=== PATIENT | male | born 1965 | race Asian ===

== ENCOUNTER 2022-03-07 05:07 | Inpatient (IN) | payer MEDICAID, OTHER ==
[~2022-03-07] VITALS: Ht 170.2 cm; Wt 75.0 kg
[~2022-03-07 05:07] MED LIST: IBUP-2070 PO
[2022-03-07] MEDS ORDERED: AMLO-257 PO (05:18)
[2022-03-07] MEDS ORDERED: DICY20TA95 PO (05:18)
[2022-03-07] MEDS ORDERED: LOSA-30 PO (05:18)
[2022-03-07] MEDS ORDERED: CIPR500T10 PO (05:18)
[2022-03-07] MEDS ORDERED: METR500 PO (05:18)
[2022-03-07 05:47] LABS: BASOPHILS % (AUTO) 0.2 % (0.0-2.0); EOSINOPHILS % (AUTO) 1.3 % (1.0-6.0); HEMATOCRIT 40.5 % (41-53); HEMOGLOBIN 13.8 g/dL (13.5-17.5); LYMPHOCYTES # (AUTO) 1.8 K/uL (1.0-4.8); MEAN CORPUSCULAR HGB CONC 34.1 G/dL (31.0-37.0); MEAN CORPUSCULAR VOLUME 85 fL (80-100); MONOCYTES # (AUTO) 0.9 K/uL (0.1-1.0); MONOCYTES % (AUTO) 6.6 % (2.0-9.0); NEUTROPHILS # (AUTO) 10.1 K/uL (1.8-7.7); NEUTROPHILS % (AUTO) 77.9 % (40.0-70.0); PLATELET COUNT (AUTO) 320 K/uL (150-450); RED BLOOD CELL COUNT(AUTO) 4.76 MIL/uL (4.50-5.90); RED CELL DISTRIBUTION WIDTH 12.3 % (11.5-14.5)
[2022-03-07 05:49] LABS: APPEARANCE,URINE CLEAR (CLEAR); BILIRUBIN,URINE NEGATIVE (NEGATIVE); GLUCOSE, URINE (UA) NEGATIVE (NEGATIVE); LEUKOCYTE ESTERASE ,URINE TRACE (NEGATIVE); NITRATE,URINE NEGATIVE (NEGATIVE); OCCULT BLOOD,URINE SMALL (NEGATIVE); PROTEIN,URINE 30-70 mg/dL (NEGATIVE); SPECIFIC GRAVITIY, URINE 1.022 (1.003-1.030); UROBILINOGEN,URINE <=1.0 mg/dL (<=1.0)
[2022-03-07 06:02] LABS: ANION GAP 6 mmol/L (8-16); CALCIUM, TOTAL 8.8 mg/dL (8.8-10.5); CARBON DIOXIDE 29 mmol/L (22-29); CHLORIDE 100 mmol/L (98-107); CREATININE 1.13 mg/dL (0.60-1.30); GLUCOSE,RANDOM 114 mg/dL (70-110); POTASSIUM 3.1 mmol/L (3.5-5.1); SODIUM SERUM 135 mmol/L (136-145); UREA NITROGEN, BLOOD 14 mg/dL (7-18)
[2022-03-07 06:15] LABS: ALANINE AMINOTRANSFERASE 43 U/L (12-78); ALBUMIN 3.8 g/dL (3.4-5.0); ALKALINE PHOSPHATASE 77 U/L (46-116); BILIRUBIN,TOTAL 0.5 mg/dL (0.1-1.0); LIPASE 129 U/L (73-393); TOTAL PROTEIN, SERUM 7.5 g/dL (6.4-8.2)
[2022-03-07 06:17] LABS: GLOMERULAR FILTR. RATE CALC > 60 mL/min (>60)
[2022-03-07 06:24] LABS: BACTERIA,URINE None Seen /HPF (None Seen); WBC,URINE 0-2 /HPF (0-5)
[2022-03-07 06:26] LABS: ASPARTATE AMINOTRANSFERASE 33 U/L (15-37)
[2022-03-07] MEDS ORDERED: POTASSIUM CHLORIDE 20 MEQ ER TABLET PO ONE (07:30)
[2022-03-07] MEDS ORDERED: KETOROLAC TROMETHAMINE 30 MG/ML VIAL IVP ONE (10:15)
[2022-03-07] MEDS ORDERED: SODIUM CHLORIDE 0.9% 1,000 ML IV ONE ×2 (10:15→11:00)
[2022-03-07] MEDS ORDERED: POTASSIUM CHL 10 MEQ/WATER 50 ML IV PRN (11:00)
[2022-03-07] MEDS ORDERED: ONDANSETRON HCL 4 MG/2 ML VIAL IVP PRN (11:00)
[2022-03-07] MEDS ORDERED: ACETAMINOPHEN 325 MG TABLET PO PRN (11:00)
[2022-03-07] MEDS ORDERED: MAGNESIUM HYDROXIDE SUSPENSION 30 ML UDCUP PO PRN (11:00)
[2022-03-07] MEDS ORDERED: OxyCODONE HCL/ACETAMINOPHEN 5-325 MG TABLET PO PRN (11:00)
[2022-03-07] MEDS ORDERED: MORPHINE SULFATE 2 MG/ML SYRINGE IVP PRN (11:00)
[2022-03-07] MEDS ORDERED: ZOLPIDEM TARTRATE 5 MG TABLET PO PRN (11:00)
[2022-03-07] MEDS ORDERED: POTASSIUM CHLORIDE 20 MEQ ER TABLET PO PRN (11:00)
[2022-03-07] MEDS ORDERED: TAMSULOSIN HCL 0.4 MG CAPSULE PO ONE (11:15)
[2022-03-07 11:16] LABS: COVID AG,FIA SOURCE NASAL SWAB
[2022-03-07 11:59] VITALS: BP 129/83
[2022-03-07] MEDS: CefTRIAXone 1 GM/DEXTROSE 50 ML IV SCH (14:34)
[2022-03-07 16:11] VITALS: BP 104/56
[2022-03-07 19:35] VITALS: BP 116/66
[2022-03-07] MEDS: DOCUSATE SODIUM 100 MG CAPSULE PO SCH (21:23)
[2022-03-07] MEDS: FAMOTIDINE 20 MG TABLET PO SCH (21:23)
[2022-03-08 04:50] VITALS: BP 112/69
[2022-03-08 08:09] VITALS: BP 127/89
[2022-03-08] MEDS: DOCUSATE SODIUM 100 MG CAPSULE PO SCH ×2 (08:36→20:21)
[2022-03-08] MEDS: FAMOTIDINE 20 MG TABLET PO SCH ×2 (08:37→20:21)
[2022-03-08] MEDS ORDERED: RINGERS SOLUTION,LACTATED 1,000 ML IV ONE ×2 (09:00→11:29)
[2022-03-08] MEDS: CefTRIAXone 1 GM/DEXTROSE 50 ML IV SCH (11:23)
[2022-03-08] MEDS ORDERED: IOHEXOL 240 MG/ML 50 ML VIAL ONE ×2 (12:27)
[2022-03-08] MEDS ORDERED: SODIUM CL IRRIG SOLN BAG 3,000 ML IRRIG ONE (12:28)
[2022-03-08] MEDS ORDERED: LOSA1TAB37 PO (12:28)
[2022-03-08] MEDS ORDERED: HYDROmorphone 2 MG/ML VIAL IVP PRN (12:30)
[2022-03-08] MEDS ORDERED: FentaNYL CITRATE PF 100 MCG/2 ML VIAL IVP PRN (12:30)
[2022-03-08] MEDS ORDERED: SUGAMMADEX SODIUM 200 MG/2 ML VIAL IVP ONE (15:21)
[2022-03-08 16:30] VITALS: BP 122/76
[2022-03-08 19:39] VITALS: BP 95/56
[2022-03-08] MEDS: MetroNIDAZOLE 500 MG TABLET PO SCH (20:20)
[2022-03-08] MEDS: OXYGEN THERAPY IH SCH (20:21)
[2022-03-09 04:58] VITALS: BP 117/68
[2022-03-09] MEDS ORDERED: LIDOCAINE/PF 2% 5 ML SYRINGE IVP ONE (06:45)
[2022-03-09] MEDS ORDERED: METOCLOPRAMIDE HCL 5 MG/ML 2 ML VIAL IVP ONE (06:45)
[2022-03-09] MEDS ORDERED: FentaNYL CITRATE PF 100 MCG/2 ML VIAL IVP ONE (06:45)
[2022-03-09] MEDS ORDERED: MIDAZOLAM HCL 2 MG/2 ML VIAL IVP ONE (06:45)
[2022-03-09] MEDS ORDERED: ROCURONIUM BROMIDE 10 MG/ML 5 ML VIAL IVP ONE (06:45)
[2022-03-09] MEDS ORDERED: ONDANSETRON HCL 4 MG/2 ML VIAL IVP ONE (06:45)
[2022-03-09] MEDS ORDERED: SUGAMMADEX SODIUM 200 MG/2 ML VIAL IVP ONE (06:45)
[2022-03-09] MEDS ORDERED: PROPOFOL 1% 20 ML VIAL IVP ONE (06:45)
[2022-03-09 07:37] LABS: BASOPHILS % (AUTO) 0.2 % (0.0-2.0); EOSINOPHILS % (AUTO) 0 % (1.0-6.0); HEMATOCRIT 40.9 % (41-53); HEMOGLOBIN 14.3 g/dL (13.5-17.5); LYMPHOCYTES # (AUTO) 1.2 K/uL (1.0-4.8); LYMPHOCYTES % (AUTO) 15.5 % (22.0-44.0); MEAN CORPUSCULAR HEMOGLOBIN 29.2 pg (26.0-34.0); MEAN CORPUSCULAR VOLUME 83 fL (80-100); MONOCYTES # (AUTO) 0.5 K/uL (0.1-1.0); MONOCYTES % (AUTO) 5.9 % (2.0-9.0); NEUTROPHILS # (AUTO) 6.1 K/uL (1.8-7.7); NEUTROPHILS % (AUTO) 78.4 % (40.0-70.0); PLATELET COUNT (AUTO) 347 K/uL (150-450); RED BLOOD CELL COUNT(AUTO) 4.91 MIL/uL (4.50-5.90); RED CELL DISTRIBUTION WIDTH 12.7 % (11.5-14.5)
[2022-03-09 07:47] LABS: ANION GAP 6 mmol/L (8-16); CALCIUM, TOTAL 9.2 mg/dL (8.8-10.5); CARBON DIOXIDE 30 mmol/L (22-29); CHLORIDE 102 mmol/L (98-107); CREATININE 0.75 mg/dL (0.60-1.30); GLOMERULAR FILTR. RATE CALC > 60 mL/min (>60); GLUCOSE,RANDOM 101 mg/dL (70-110); POTASSIUM 4.3 mmol/L (3.5-5.1); SODIUM SERUM 138 mmol/L (136-145); UREA NITROGEN, BLOOD 8 mg/dL (7-18)
[2022-03-09] MEDS: OXYGEN THERAPY IH SCH (08:00)
[2022-03-09] MEDS: DOCUSATE SODIUM 100 MG CAPSULE PO SCH (08:11)
[2022-03-09] MEDS: MetroNIDAZOLE 500 MG TABLET PO SCH (08:11)
[2022-03-09] MEDS: FAMOTIDINE 20 MG TABLET PO SCH (08:11)
[2022-03-09 08:19] VITALS: BP 115/76
[2022-03-09] MEDS ORDERED: AmLODIPine BESYLATE 5 MG TABLET PO SCH (09:00)
[2022-03-09] MEDS: CefTRIAXone 1 GM/DEXTROSE 50 ML IV SCH (10:03)
[2022-03-09] MEDS ORDERED: BACTDSB PO (10:58)
[2022-03-09 15:56] VITALS: BP 107/72
== END 2022-03-09 19:08 | disposition home or self-care (01) | DRG 465 ==
LOC: EMS 05:08 → 6S 11:25 → EMS 11:37
PROVIDERS: ADMIT Internal Medicine; ATTEND Internal Medicine
PROC: 0TF78ZZ Fragmentation in Left Ureter, Via Natural or Artificial Opening Endoscopic (ICD-10-PCS; 2022-03-08)
PROC: 0T778DZ Dilation of Left Ureter with Intraluminal Device, Via Natural or Artificial Opening Endoscopic (ICD-10-PCS; 2022-03-08)
PROC: BT1F1ZZ Fluoroscopy of Left Kidney, Ureter and Bladder using Low Osmolar Contrast (ICD-10-PCS; principal; 2022-03-08 14:35)
DX: N13.2 Hydronephrosis with renal and ureteral calculous obstruction (principal); E87.6 Hypokalemia; I10 Essential (primary) hypertension; Z20.822 Contact with and (suspected) exposure to COVID-19
CPT/HCPCS: 74176; 80048; 80053; 81001; 83690; 84132; 85025; 87081; 87086; 99285; G0238; J0696; J1885; J2250; J2405; J2704; J2765; J3010; J3490; J7030; J7120; Q9966; Q9967